=== PATIENT | male | born 1945 | race Caucasian/White ===

== ENCOUNTER → 2016-08-26 | Outpatient (CLI) | payer MEDICARE, OTHER | END | disposition short-term general hospital (02) | LOC: CLUROL 08:26 | DX: N48.6 Induration penis plastica (principal) ==

== ENCOUNTER 2016-09-09 13:34 | Day surgery (SDC) | payer MEDICARE, OTHER | END 2016-09-09 14:23 | disposition short-term general hospital (02) | LOC: LAB 13:34 → SURGOP 13:34 | PROC: 0TJB8ZZ Inspection of Bladder, Via Natural or Artificial Opening Endoscopic (ICD-10-PCS; principal; 2016-09-09) | DX: N40.1 Benign prostatic hyperplasia with lower urinary tract symptoms (principal); R35.0 Frequency of micturition; R39.15 Urgency of urination; R35.1 Nocturia ==